=== PATIENT | female | born 1985 | race Caucasian/White ===

== ENCOUNTER 2018-01-11 01:17 | Emergency (ER) | payer OTHER, SELFPAY ==
[2018-01-11 01:45] LABS: #Basophils 0.1 thou/uL (0.0-0.2); #Eosinphils 0.1 thou/uL (0.0-0.7); #Lymphocytes 2.6 thou/uL (1.20-3.40); #Monocytes 0.4 thou/uL (0.11-0.59); #Neutrophils 2.9 thou/uL (1.40-6.50); %Basophils 0.8 % (0.0-1.0); %Eosinophils 2.3 % (0.0-10.0); %Lymphocytes 42.3 % (21.0-51.0); %Neutrophils 47.5 % (42.0-75.0); Hemoglobin 12.3 g/dL (12.0-16.0); Mean Corpuscular HGB CONC 33.2 g/dL (32.0-36.0); Mean Corpuscular Hemoglobin 27.9 pg (27.0-31.0); Mean Platelet Volume 7.5 fL (7.4-10.4); Platelet Count 232 thou/uL (130-400); RBC Distribution Width 12.5 % (11.5-14.5); Red Blood Cell (RBC) Count 4.42 mill/uL (4.20-5.40)
[2018-01-11 02:13] LABS: Alcohol 208 mg/dL (Less than 10); Anion Gap 18 mmol/L (10-20); BUN (Urea Nitrogen) 8 mg/dL (7.0-18.7); Calc. Creatinine Clearance 0 mL/min (70-130); Calcium 9.2 mg/dL (7.8-10.44); Carbon Dioxide 18 mmol/L (22-29); Chloride 106 mmol/L (98-107); Estimated GFR-MDRD Greater than 90; Glucose 357 mg/dL (70-105); Potassium 3.4 mmol/L (3.5-5.1); Sodium 139 mmol/L (136-145)
[2018-01-11 02:31] LABS: BHCG - Serum Negative (NEGATIVE); Pregs Control Background? CLEAR/WHITE (CLR/WHITE); Pregs Control Bar Appear? YES (CONTROL BAR)
[2018-01-11] MEDS ORDERED: Insulin Regular 300 UNITS/3 ML VIAL ONE (02:43)
== END 2018-01-11 04:47 | disposition home or self-care (01) ==
LOC: ERS 01:17
DX: F10.129 Alcohol abuse with intoxication, unspecified (principal); E11.65 Type 2 diabetes mellitus with hyperglycemia; Y90.7 Blood alcohol level of 200-239 mg/100 ml
CPT/HCPCS: 36415; 36416; 80048; 80307; 82010; 84703; 85025; 96361; 96374; J1815

== ENCOUNTER 2018-10-20 09:05 | Outpatient (CLI) | payer MEDICAID ==
--- NOTE | 2018-10-20 10:41 | ULT ---
HEPATIC ULTRASOUND WITH GRAYSCALE AND COLORFLOW AND SPECTRAL DOPPLER: HISTORY: Elevated LFTs. FINDINGS: The liver demonstrates homogeneous echotexture without focal mass or intrahepatic ductal dilatation. The spleen measures 12.8 cm in length without mass. No shadowing gallstones, gallbladder wall thick ening, or pericholecystic fluid is seen. There are nonmobile, nonshadowing, echogenic foci arising f rom the gallbladder, consistent with polyps, the largest measuring about 7 mm. The common duct measu res 3 mm in diameter. The pancreas is not well visualized due to overlying bowel gas. There is normal flow and waveforms in the hepatic, portal, and splenic vasculature. No free fluid is seen. IMPRESSION: 1. Gallbladder polyps, measuring up to 7 mm. Surgical consultation is recommended. 2. Borderline splenomegaly. POS: [facility]
== END 2018-10-20 09:06 | disposition home or self-care (01) ==
LOC: ULT 09:05
PROVIDERS: ATTEND Student in an Organized Health Care Education/Training Program
DX: R94.5 Abnormal results of liver function studies (principal); K82.4 Cholesterolosis of gallbladder
CPT/HCPCS: 76705

== ENCOUNTER 2019-01-23 18:45 | Inpatient (IN) | payer MEDICAID, SELFPAY ==
[2019-01-23] MEDS ORDERED: Acetaminophen 500 MG TAB PO PRN (19:47)
[2019-01-23] MEDS ORDERED: Diphenoxylate HCl/Atropine Tablet PO PRN ×2 (19:47)
[2019-01-23] MEDS ORDERED: NS / Oxytocin 40 units/1000ml 1,000 ML IV PRN ×2 (19:47→20:26)
[2019-01-23] MEDS ORDERED: Methylergonovine 0.2 MG/ML VIAL IM PRN (19:47)
[2019-01-23] MEDS ORDERED: hydrALAZINE 20 MG/ML VIAL SLOW IVP PRN (19:47)
[2019-01-23] MEDS ORDERED: Misoprostol 200 MCG TAB PR PRN (19:47)
[2019-01-23] MEDS ORDERED: Butorphanol Tartrate 1 MG/ML VIAL SLOW IVP PRN (19:47)
[2019-01-23] MEDS ORDERED: Lidocaine 1% (PF) 30 ML VIAL SC PRN (19:47)
[2019-01-23] MEDS ORDERED: Carboprost 250 MCG/ML AMP IM PRN (19:47)
[2019-01-23] MEDS ORDERED: Promethazine HCl 25 MG/ML VIAL IM PRN (19:47)
[2019-01-23] MEDS ORDERED: Ondansetron PF 4 MG/2 ML Vial IVP PRN (19:47)
[2019-01-23] MEDS ORDERED: Ibuprofen 800 MG TAB PO PRN (19:47)
--- NOTE | 2019-01-23 19:47 | PDOC.FPROB ---
FMR OB H&P: HPI - History of Present Illness Chief Complaint: IOL History of Present Illness: 33 yo @ 38.1 by 14.6 wk sono presents for medically indicated IOL for White Class F diabetes. Denies VB, VD, LOF, contractions. Feels movement. Desires epidural. Has no concerns. Primary Care Physician: Logan DAVIS FMR OB H&P: Current - Care : 6 Para: 5005 Dating Criteria: 14.6 wk sono Course/Complications: Class F diabetes, now with proteinuria - OB Labs Blood type: O RH: positive Antibody Screen: negative HIV: negative RPR: negative HepBsAg: negative Rubella: immune Quad screen: negative Gonorrhea: negative Chlamydia: negative A1c: 8.9 H&H: 12.4/36.2 Platelets: 217 Additional labs: 24 hr urine pr 288, pr/cr 271 AST/ALT: 56/91 TSH 0.786 Hep A negative Hep C negative - Anatomy Survey Anatomy survey: Normal growth and anatomy. 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/2017 - Surgical History Sx History: appendectomy age 14 - Social History Social History: No tobacco, alcohol, drug use - Family History Family History: Diabetes FMR OB H&P: Medications - Current Home Medications: Medication Instructions Recorded Confirmed Type Vit 33/Iron/Folic/Dha 1 each PO DAILY 01/21/14 01/23/19 History [Select-OB + DHA Pack] Aspirin [Ecotrin Low Strength] 81 mg pe PO DAILY 01/23/19 01/23/19 History Insulin NPH Hum/Reg Insulin HM 35 units SQ TID-WM 01/23/19 01/23/19 History [Novolin 70-30 100 Unit/ml Vial] Insulin NPH Human Isophane 45 units SQ QAM 01/23/19 01/23/19 History [HumuLIN N] Allergies/Adverse Reactions: Allergies Allergy/AdvReac Type Severity Reaction Status Date / Time No Known Allergies Allergy Verified 01/21/14 16:33 FMR OB H&P: ROS - Review of Systems Eyes: denies: vision changes Cardiovascular: denies: chest pain, palpitation, edema Respiratory: denies: cough, shortness of breath Gastrointestinal: denies: abdominal pain, nausea, vomiting Genitourinary (Female): denies: dysuria, vaginal discharge, vaginal pain, vaginal bleeding, contractions, vaginal pressure Musculoskeletal: denies: pain, swelling Neurologic: denies: weakness, headache Integumentary: denies: rash FMR OB H&P: Vital Signs - Maternal Vital signs: 132/68, 68, 98% on RA - Heart Tones Baseline: 130 Variability: moderate Acceleration: present Deceleration: absent Category: category 1 [place] contractions every: none FMR OB H&P: Physical Exam - Physical Exam General: NAD HEENT: normocephalic and atraumatic Heart: RRR, normal S1/S2, no edema General: CTAB, no respiratory distress Abdomen: soft, gravid Skin: good tugor - Pelvic Exam SVE: 2//h Shane score: 5 Presentation: cephalic confirmed by ultrasound FMR OB H&P: A/P - Problem List (1) Intrauterine Current Visit: Yes Status: Acute Code(s): Z34.90 - ENCNTR FOR SUPRVSN OF NORMAL , UNSP, UNSP TRIMESTER (2) Encounter for induction of labor Current Visit: Yes Status: Acute Code(s): Z34.90 - ENCNTR FOR SUPRVSN OF NORMAL , UNSP, UNSP TRIMESTER (3) Diabetes mellitus type 2 in obese Current Visit: No Status: Acute Code(s): E11.9 - TYPE 2 DIABETES MELLITUS WITHOUT COMPLICATIONS; E66.9 - OBESITY, UNSPECIFIED Discussion: Date/Time: 01/23/191946 IOL, medically indicated for Class F diabetes - Cat 1, no contractions - [place] 5, cephalic presentation, will start pitocin - desires epidural, consulted anesthesia Pregestational DM2 - White class F - q2h accuchecks - SSI with goal intrapartum BG 70-120 - BG was 66 on admission, given crackers - Home regimen: Humilin U-100 45 units qam, Novolog 35 units with meals Obesity - BMI 37 Hx of LGA infants Hx reatined placenta s/p D&C with 2016 Hx PPH s/p 2 units pRBCs with 2016 Dispo: admit to L&D for IOL This H&P was discussed with Dr. Morales who agrees with the above documentation and plan. Addendum - Attending - Attending Attestation Date/Time: 01/24/19 9019 I personally evaluated the patient and discussed the management with Dr. Baker on 01/23/2019 I agree with the History, Examination, Assessment and Plan documented above with any addition or exceptions noted below - 33 yo @38 1/7 weeks here for induction due to Class F DM. Denies any ctx, LOF, VB. (+)FM SVE 2/50%/-3 per resident Cat 1 FHTs. A/P: 1) IUP @ 38 1/7 weeks - cervix favorable- plan to start pitocin. 2) Class F DM- monitor BG
[2019-01-23 20:29] VITALS: BMI 41.7
[2019-01-23] MEDS: Lactated Ringer's 1,000 ML IV SCH (21:02)
[2019-01-23] MEDS ORDERED: Dextrose 5% in Water 1,000 ML IV PRN (21:15)
[2019-01-23] MEDS ORDERED: Dextrose 50% Abboject 50 ML SYRINGE SLOW IVP PRN (21:15)
[2019-01-23] MEDS ORDERED: HumaLOG 300 UNITS/3 ML VIAL SC PRN (21:15)
[2019-01-23 21:25] LABS: Hemoglobin 11.7 g/dL (12.0-16.0); Mean Corpuscular HGB CONC 33.7 g/dL (32.0-36.0); Mean Corpuscular Hemoglobin 30.5 pg (27.0-31.0); Mean Corpuscular Volume 90.4 fL (78.0-98.0); Mean Platelet Volume 7.8 fL (7.4-10.4); Platelet Count 202 thou/uL (130-400); Red Blood Cell (RBC) Count 3.85 mill/uL (4.20-5.40); White Blood Cell (WBC) Count 8.5 thou/uL (4.8-10.8)
[2019-01-23] MEDS: NS w/ Oxytocin 10 units 500 ML IV SCH (21:59)
[2019-01-23 22:03] LABS: Syphilis Antibody Nonreactive (Nonreactive); Syphilis Antibody Index 0.05 S/CO (<1.00 Non-Reactive)
[2019-01-23 22:28] LABS: HBSAg Index 0.27 S/CO (0-0.99); Hep B Surf Ag Non-Reactive S/CO (NonReactive)
--- NOTE | 2019-01-24 00:42 | PDOC.LDPN ---
Labor & Delivery Progress Note - Subjective Subjective: comfortable - Objective Vital signs reviewed and normal: yes General: NAD, resting Uterine fundus: non tender SVE: 09/20/-3 Dilation: 2 Effacement: 25% Station: -3 FHT: category 1, variability present, absent or minimal variables [place] contractions every: infrequent - Assessment (1) Encounter for induction of labor Code(s): Z34.90 - ENCNTR FOR SUPRVSN OF NORMAL , UNSP, UNSP TRIMESTER Current Visit: Yes Status: Acute (2) Anemia of Code(s): O99.019 - ANEMIA COMPLICATING , UNSPECIFIED TRIMESTER Current Visit: No Status: Acute (3) Diabetes mellitus type 2 in obese Code(s): E11.9 - TYPE 2 DIABETES MELLITUS WITHOUT COMPLICATIONS; E66.9 - OBESITY , UNSPECIFIED Current Visit: No Status: Acute Plan: continue plan of care -: 1. IOL at 38 weeks dt DM - patient has been started on pitocin, however cxns are infrequent. Continue pit and change positions. No change on SVE at this time - recheck in 4-6 hours 2. DM - continue accuchecks. - SSI PRN
--- NOTE | 2019-01-24 04:39 | PDOC.LDPN ---
Labor & Delivery Progress Note - Subjective Subjective: comfortable, no concerns - Objective Vital signs reviewed and normal: yes General: NAD, resting, breathing through contractions Uterine fundus: non tender SVE: 4/50/-3 Dilation: 4 Effacement: 50% Station: -3 FHT: category 1, variability present, absent or minimal variables [place] contractions every: 3-5 - Assessment (1) Encounter for induction of labor Code(s): Z34.90 - ENCNTR FOR SUPRVSN OF NORMAL , UNSP, UNSP TRIMESTER Current Visit: Yes Status: Acute (2) Intrauterine Code(s): Z34.90 - ENCNTR FOR SUPRVSN OF NORMAL , UNSP, UNSP TRIMESTER Current Visit: Yes Status: Acute (3) Diabetes mellitus type 2 in obese Code(s): E11.9 - TYPE 2 DIABETES MELLITUS WITHOUT COMPLICATIONS; E66.9 - OBESITY , UNSPECIFIED Current Visit: No Status: Acute Plan: continue plan of care -: 1. IOL- at 38.1 wks. Making change on pitocin. Continue current plan. Will consider AROM if contraction slow. Category 1 strip. No concerns at this time. Recheck in 4 hours. 2. White class F DM Continue to monitor blood sugar. All accuchecks controlled at this time.
--- NOTE | 2019-01-24 07:04 | PDOC.LDPN ---
Labor & Delivery Progress Note - Subjective Subjective: comfortable - Objective Vital signs reviewed and normal: yes General: resting SVE: 4/50%/-3/ant/soft FHT: category 1 [place] contractions every: q2-3 min - Assessment (1) Intrauterine Code(s): Z34.90 - ENCNTR FOR SUPRVSN OF NORMAL , UNSP, UNSP TRIMESTER Current Visit: Yes Status: Acute (2) Encounter for induction of labor Code(s): Z34.90 - ENCNTR FOR SUPRVSN OF NORMAL , UNSP, UNSP TRIMESTER Current Visit: Yes Status: Acute (3) Diabetes mellitus type 2 in obese Code(s): E11.9 - TYPE 2 DIABETES MELLITUS WITHOUT COMPLICATIONS; E66.9 - OBESITY , UNSPECIFIED Current Visit: No Status: Acute -: A/P: 1) IUP @38 2/7 weeks undergoing induction- continue pitocin and monitoring. Category 1 FHTs 2) Class F DM- BG 70-80 through night; continue to monitor.
[2019-01-24] MEDS: NS w/ Oxytocin 10 units 500 ML IV SCH (09:15)
[2019-01-24] MEDS ORDERED: HumaLOG 300 UNITS/3 ML VIAL SC PRN (11:41)
[2019-01-24] MEDS: Lactated Ringer's 1,000 ML IV SCH ×2 (12:08→15:08)
--- NOTE | 2019-01-24 13:33 | PDOC.LDPN ---
Labor & Delivery Progress Note - Subjective Subjective: comfortable - Objective Abnormal vital signs: BP's systolic in 140-150's General: NAD, resting Uterine fundus: non tender SVE: Alexis @ 9:45 AM Dilation: 4 Effacement: 50% Station: -3 (ballotable) FHT: category 1, variability present [place] contractions every: q3 min - Assessment (1) Encounter for induction of labor Code(s): Z34.90 - ENCNTR FOR SUPRVSN OF NORMAL , UNSP, UNSP TRIMESTER Current Visit: Yes Status: Acute (2) Intrauterine Code(s): Z34.90 - ENCNTR FOR SUPRVSN OF NORMAL , UNSP, UNSP TRIMESTER Current Visit: Yes Status: Acute (3) Anemia of Code(s): O99.019 - ANEMIA COMPLICATING , UNSPECIFIED TRIMESTER Current Visit: No Status: Acute Plan: continue plan of care -: 33 year old at 38.2 wks by 14.6 wk sono presents for medically indicated IOL 1. Medically indicated IOL for Class F DM - Cervical exam unchanged /-3, ballotable - CLAIRE 15.06 cm with DVP 6.30 cm - Cephalic presentation based on bedside sono - Not safe for rupture at this time, will recheck in 4 hours and consider AROM at that time - On 18U of pit, not ruptured, so no IUPC in place. Will give Pit break and restart - Q2h BG checks, all at goal (<120). SSI in place for BG >120. 2. Polyhydramnios - CLAIRE in clinic appx 25 with DVP 8 cm - CLAIRE today 15.06 cm with DVP 6.30 cm 3. Hx LGA 4. Anemia of - H/H 11.7/34.8 - Continue to monitor 5. Grandmultip - Possibility for PPH - Cytotec and hemabate if needed - No methergine d/t elevated BP's 6. gHTN - Pre-E labs pending (CMP, UA) - Proteinuria at baseline d/t kidney function - No severe range pressures - Continue to monitor pressures Addendum - Attending - Attending Attestation Date/Time: 01/24/19 8742 I personally evaluated the patient and discussed the management with Dr. Espinoza I agree with the History, Examination, Assessment and Plan documented above with any addition or exceptions noted below. 33 yo female at 38.2 wks by 14.6 wk sono here for IOL 2/2 uncontrolled class F DM now with gHTN. 1. sIUP: IOB records reviewed. GBS negative. Will need Tdap pp. Epidural for pain control. Cat 1 tracing. 2. Uncontrolled class F DM: Continue close glucose monitoring. Keep glucose < 110. Will switch accu checks to q1 hour in active labor. 3. Polyhydramnios 4. Transamnitis with gallbladder polyp: Will try to arrange surgical evaluation but limited by insurance issues. 5. BMI 41: 25 lb wt gain 6. hx of LGA fetus: EFW 8lbs 7. hx of retained placenta with PPH: Actively and aggressively manage 3rd stage 8. Grandmultip 9. gHTN: Labs unchanged. Asymptomatic. Monitor BP. Repeat exam in 2 to 4 hours. Consider AROM when safe vs slow leak if not able due to position. Continue pit per protocol. Jairo
[2019-01-24 13:50] LABS: ALT (SGPT) 44 U/L (8-55); AST (SGOT) 70 U/L (5-34); Albumin 3.1 g/dL (3.5-5.0); Alkaline Phosphatase 128 U/L (40-150); Anion Gap 13 mmol/L (10-20); BUN (Urea Nitrogen) 11 mg/dL (7.0-18.7); Bilirubin, Total 0.5 mg/dL (0.2-1.2); Calc. Creatinine Clearance 227 mL/min (70-130); Calcium 8.7 mg/dL (7.8-10.44); Carbon Dioxide 16 mmol/L (22-29); Chloride 109 mmol/L (98-107); Estimated GFR-MDRD Greater than 90; Globulin 2.8 g/dL (2.4-3.5); Glucose 90 mg/dL (70-105); Potassium 3.9 mmol/L (3.5-5.1); Protein, Total 5.9 g/dL (6.0-8.3); Sodium 134 mmol/L (136-145)
[2019-01-24] MEDS ORDERED: Fentanyl 4 mcg/Bup 0.1% Cadd 100 ML ONE (14:20)
--- NOTE | 2019-01-24 14:33 | PDOC.OBLPN ---
FMR OB Labor PN: Subj - Interval History Hospital Day: 1 Chief Complaint: none Indentification: 33 yo at 38.2 WGA by 14.6 wk US Interval History: Elevated BP w high systolic of 157, requested epidural FMR OB Labor PN: Obj - Maternal Vital signs: BP: [148/86] HR: [70] RR: [] Tmax: [] Pox: [96]% on [] Wt: [103.42kg] - Urine output I&O: reviewed - Procedures Procedures: AROM AROM: bloody fluid FMR OB Labor PN: Exam - Physical Exam General: NAD General: no respiratory distress Abdomen: soft, gravid - Pelvic Exam Deviation from normal: cystic lesion <1cm SVE: By Logan @ 2:05pm Presentation: cephalic Estimated Weight: 9 lbs FMR OB Labor PN: Data - Labs Lab results: Laboratory Results - last 24 hr 01/23/19 01/23/19 01/23/19 20:23 21:15 21:15 WBC RBC Hgb Hct MCV MCH MCHC RDW Plt Count MPV Sodium Potassium Chloride Carbon Dioxide Anion Gap BUN Creatinine Estimated GFR (MDRD) Glucose POC Glucose 66 L Uric Acid Calcium Total Bilirubin AST ALT Alkaline Phosphatase Serum Total Protein Albumin Globulin Albumin/Globulin Ratio Syphilis IgG/IgM Ab Nonreactive Hep Bs Antigen Non-Reactive Blood Type Antibody Screen 01/23/19 01/23/19 01/23/19 21:15 21:15 22:27 WBC 8.5 RBC 3.85 L Hgb 11.7 L Hct 34.8 L MCV 90.4 MCH 30.5 MCHC 33.7 RDW 12.0 Plt Count 202 MPV 7.8 Sodium Potassium Chloride Carbon Dioxide Anion Gap BUN Creatinine Estimated GFR (MDRD) Glucose POC Glucose 85 Uric Acid Calcium Total Bilirubin AST ALT Alkaline Phosphatase Serum Total Protein Albumin Globulin Albumin/Globulin Ratio Syphilis IgG/IgM Ab Hep Bs Antigen Blood Type O POSITIVE Antibody Screen NEGATIVE 01/24/19 01/24/19 01/24/19 00:00 00:44 02:40 WBC RBC Hgb Hct MCV MCH MCHC RDW Plt Count MPV Sodium 134 L Potassium 3.9 Chloride 109 H Carbon Dioxide 16 L Anion Gap 13 BUN 11 Creatinine 0.58 L Estimated GFR (MDRD) Greater than 90 Glucose 90 POC Glucose 77 74 Uric Acid 5.0 Calcium 8.7 Total Bilirubin 0.5 AST 70 H ALT 44 Alkaline Phosphatase 128 Serum Total Protein 5.9 L Albumin 3.1 L Globulin 2.8 Albumin/Globulin Ratio 1.1 L Syphilis IgG/IgM Ab Hep Bs Antigen Blood Type Antibody Screen FMR OB Labor PN: A/P - Problem List (1) Encounter for induction of labor Current Visit: Yes Status: Acute Code(s): Z34.90 - ENCNTR FOR SUPRVSN OF NORMAL , UNSP, UNSP TRIMESTER (2) Uncontrolled type 2 diabetes mellitus Current Visit: Yes Status: Chronic Code(s): E11.65 - TYPE 2 DIABETES MELLITUS WITH HYPERGLYCEMIA (3) Gallbladder polyp Current Visit: Yes Status: Chronic Code(s): K82.4 - CHOLESTEROLOSIS OF GALLBLADDER (4) Morbid obesity with BMI of 40.0-44.9, adult Current Visit: Yes Status: Chronic Code(s): E66.01 - MORBID (SEVERE) OBESITY DUE TO EXCESS CALORIES; Z68.41 - BODY MASS INDEX (BMI) 40.0-44.9, ADULT (5) Elevated AST (SGOT) Current Visit: Yes Status: Chronic Code(s): R74.0 - NONSPEC ELEV OF LEVELS OF TRANSAMNS & LACTIC ACID DEHYDRGNSE (6) Intrauterine Current Visit: Yes Status: Acute Code(s): Z34.90 - ENCNTR FOR SUPRVSN OF NORMAL , UNSP, UNSP TRIMESTER (7) Anemia of Current Visit: No Status: Acute Code(s): O99.019 - ANEMIA COMPLICATING , UNSPECIFIED TRIMESTER (8) Polyhydramnios affecting in third trimester Current Visit: Yes Status: Acute Code(s): O40.3XX0 - POLYHYDRAMNIOS, THIRD TRIMESTER, NOT APPLICABLE OR UNSP (9) History of hemorrhage, currently in third trimester Current Visit: Yes Status: Acute Code(s): O09.293 - SUPRVSN OF PREG W POOR REPRODCTV OR OBSTET HX, THIRD TRI Disposition: Medically indicated induction of labor for uncontrolled Class F DM -575/0 @ 2:05pm -AROM @ 2:05, bloody fluid -repeat cervical exam in 1-2 hours once epidural is placed, IUPC at that time if indicated -20 units Pitocin -blood glucose q2h accuchecks have been well controlled (<120); increase to qh once active labor Anemia of -H/H stable Elevated AST -noted in clinic visits -gallbladder u/s showed gallbladder polyp -since enzymes continue to be elevated, will consider consulting gen surg Gallbladder polyp -see plan as above Morbid obesity -will ensure patient has appropriate prophylaxis pp Term intrauterine -38.2 wks, see plan for #1 History of PPH 2/2 retained products of conception -will have precautions ready Grandmultip -additional risk factor for pph -aggressively managed third stage of labor Discussion: Date/Time: 01/24/19 8761 This H&P was discussed with [Logan] who agrees with the above documentation and plan. Signature: Amparo Wilson PGY1 Addendum - Attending - Attending Attestation Date/Time: 01/24/19 9771 I personally evaluated the patient and discussed the management with Dr. Espinoza and Steve I agree with the History, Examination, Assessment and Plan documented above with any addition or exceptions noted below. 33 yo female at 38.2 wks by 14.6 wk sono here for IOL 2/2 uncontrolled class F DM now with gHTN. 1. sIUP: IOB records reviewed. GBS negative. Will need Tdap pp. Epidural for pain control. Cat 1 tracing. AROM at 1400. 2. Uncontrolled class F DM: Continue close glucose monitoring. Keep glucose < 110. Will switch accu checks to q1 hour in active labor. 3. Polyhydramnios 4. Transamnitis with gallbladder polyp: Will try to arrange surgical evaluation but limited by insurance issues. 5. BMI 41: 25 lb wt gain 6. hx of LGA fetus: EFW 8lbs 7. hx of retained placenta with PPH: Actively and aggressively manage 3rd stage 8. Grandmultip 9. gHTN: Labs unchanged. Asymptomatic. Monitor BP. Repeat exam in 2 to 4 hours. Continue pit per protocol. Will place IUPC as needed. Jairo
[2019-01-24] MEDS ORDERED: Fentanyl 100 MCG/2 ML VIAL ONE (14:42)
[2019-01-24] MEDS ORDERED: Bupivacaine 0.5% 10 ML VIAL ONE (14:42)
[2019-01-24] MEDS ORDERED: Bupivacaine 0.25% 10 ML VIAL EPIDURAL ONE (15:10)
[2019-01-24] MEDS ORDERED: Fentanyl 100 MCG/2 ML VIAL I-THECAL ONE (15:10)
[2019-01-24] MEDS ORDERED: ePHEDrine/0.9% NaCl/PF SYRINGE 50 mg/10 ml SLOW IVP PRN (15:11)
[2019-01-24] MEDS ORDERED: Ondansetron PF 4 MG/2 ML Vial IVP PRN ×3 (15:11→22:33)
[2019-01-24] MEDS ORDERED: Acetaminophen 325 MG TAB PO PRN (15:11)
[2019-01-24] MEDS ORDERED: Naloxone HCl 0.4 mg/ml Vial IVP PRN ×2 (15:11)
[2019-01-24] MEDS ORDERED: Lactated Ringer's 500 ML IV PRN (15:11)
[2019-01-24] MEDS ORDERED: diphenhydrAMINE 50 MG/ML VIAL IVP PRN (15:11)
[2019-01-24] MEDS ORDERED: Promethazine HCl 25 MG/ML VIAL IM PRN (15:11)
[2019-01-24] MEDS ORDERED: Fentanyl 4 mcg/Bupivacaine 0.1% Cassette 100 ML EPIDURAL SCH (15:15)
[2019-01-24] MEDS ORDERED: Communication Order-Pharmacy FS SCH (15:15)
--- NOTE | 2019-01-24 17:11 | PDOC.LDPN ---
Labor & Delivery Progress Note - Subjective Subjective: comfortable - Objective Vital signs reviewed and normal: yes Abnormal vital signs: BP 134/76, Pulse 76 General: NAD, resting Uterine fundus: non tender SVE: 16:50 by Alexis Dilation: 7 Effacement: 75% Station: 0 FHT: category 1, variability present [place] contractions every: q4 min IUPC placed: yes - Assessment (1) Uncontrolled type 2 diabetes mellitus Code(s): E11.65 - TYPE 2 DIABETES MELLITUS WITH HYPERGLYCEMIA Current Visit: Yes Status: Chronic (2) Encounter for induction of labor Code(s): Z34.90 - ENCNTR FOR SUPRVSN OF NORMAL , UNSP, UNSP TRIMESTER Current Visit: Yes Status: Acute (3) Intrauterine Code(s): Z34.90 - ENCNTR FOR SUPRVSN OF NORMAL , UNSP, UNSP TRIMESTER Current Visit: Yes Status: Acute (4) Anemia of Code(s): O99.019 - ANEMIA COMPLICATING , UNSPECIFIED TRIMESTER Current Visit: No Status: Acute (5) History of hemorrhage, currently Code(s): O09.299 - SUPRVSN OF PREG W POOR REPRODCTV OR OBSTET HISTORY, UNSP TRI Current Visit: Yes Status: Acute (6) Polyhydramnios affecting in third trimester Code(s): O40.3XX0 - POLYHYDRAMNIOS, THIRD TRIMESTER, NOT APPLICABLE OR UNSP Current Visit: Yes Status: Acute (7) Elevated AST (SGOT) Code(s): R74.0 - NONSPEC ELEV OF LEVELS OF TRANSAMNS & LACTIC ACID DEHYDRGNSE Current Visit: Yes Status: Chronic (8) Gallbladder polyp Code(s): K82.4 - CHOLESTEROLOSIS OF GALLBLADDER Current Visit: Yes Status: Chronic (9) Morbid obesity with BMI of 40.0-44.9, adult Code(s): E66.01 - MORBID (SEVERE) OBESITY DUE TO EXCESS CALORIES; Z68.41 - BODY MASS INDEX (BMI) 40.0-44.9, ADULT Current Visit: Yes Status: Chronic Plan: continue plan of care, pitocin for augmentation -: 33 year old at 38.2 wks by 14.6 wk sono Medically indicated induction of labor for uncontrolled Class F DM -/ @ 16:50 - IUPC placed @ 16:50 -AROM @ 2:05, bloody fluid -Repeat cervical check in 1-2 hours -blood glucose q1h accuchecks since in active labor Anemia of -H/H stable Elevated AST -noted in clinic visits -gallbladder u/s showed gallbladder polyp -since enzymes continue to be elevated, will consider consulting gen surg Gallbladder polyp -see plan as above Morbid obesity -will ensure patient has appropriate prophylaxis pp Term intrauterine -38.2 wks, see plan for #1 History of PPH 2/2 retained products of conception -will have precautions ready Grandmultip -additional risk factor for pph -aggressively managed third stage of labor Addendum - Attending - Attending Attestation Date/Time: 01/24/19 1840 I personally evaluated the patient and discussed the management with Dr. Espinoza I agree with the History, Examination, Assessment and Plan documented above with any addition or exceptions noted below. 33 yo female at 38.2 wks by 14.6 wk sono here for IOL 2/2 uncontrolled class F DM now with gHTN. 1. sIUP: IOB records reviewed. GBS negative. Will need Tdap pp. Epidural for pain control. Cat 1 tracing. AROM at 1400. 2. Uncontrolled class F DM: Continue close glucose monitoring. Keep glucose < 110. Will switch accu checks to q1 hour in active labor. 3. Polyhydramnios 4. Transamnitis with gallbladder polyp: Will try to arrange surgical evaluation but limited by insurance issues. 5. BMI 41: 25 lb wt gain 6. hx of LGA fetus: EFW 8lbs 7. hx of retained placenta with PPH: Actively and aggressively manage 3rd stage 8. Grandmultip 9. gHTN: Labs unchanged. Asymptomatic. Monitor BP. Repeat exam in 2 hours/prn. Continue pit per protocol. Changing appropriately. Could considering holding off IUPC placement but has been done. Contractions adequate. Jairo
--- NOTE | 2019-01-24 19:14 | PDOC.LDPN ---
Labor & Delivery Progress Note - Subjective Subjective: comfortable, no concerns - Objective Vital signs reviewed and normal: yes General: NAD, resting, breathing through contractions Uterine fundus: non tender SVE: anterior lip Effacement: 100% Station: 1+ FHT: category 1, early decelerations, variability present, absent or minimal variables [place] contractions every: 3-4 min AROM: bloody fluid IUPC placed: yes - Assessment (1) Encounter for induction of labor Code(s): Z34.90 - ENCNTR FOR SUPRVSN OF NORMAL , UNSP, UNSP TRIMESTER Current Visit: Yes Status: Acute (2) Intrauterine Code(s): Z34.90 - ENCNTR FOR SUPRVSN OF NORMAL , UNSP, UNSP TRIMESTER Current Visit: Yes Status: Acute Plan: continue plan of care, pitocin for augmentation -: 1. IOP- 38.2 wks. On pitocin. AROM at 1400, with bloody fluid. 1900 check anterior lip and +1. Continue induction, will attempt to push past anterior lip and position change to upright seated position. 2. White class F DM. Accuchecks have been normal. SSI. 3. gestational HTN- monitor BP's 4. Past history of PPH with retained products. Plan AMTSL with Pit and 800 cytotec. Addendum - Attending - Attending Attestation Date/Time: 01/24/191941 I personally evaluated the patient and discussed the management with Dr. Kim I agree with the History, Examination, Assessment and Plan documented above with any addition or exceptions noted below. 33 yo female at 38.2 wks by 14.6 wk sono here for IOL 2/2 uncontrolled class F DM now with gHTN. 1. sIUP: IOB records reviewed. GBS negative. Will need Tdap pp. Epidural for pain control. Cat 1 tracing. AROM at 1400. 2. Uncontrolled class F DM: Continue close glucose monitoring. Keep glucose < 110. Will switch accu checks to q1 hour in active labor. 3. Polyhydramnios 4. Transamnitis with gallbladder polyp: Will try to arrange surgical evaluation but limited by insurance issues. 5. BMI 41: 25 lb wt gain 6. hx of LGA fetus: EFW 8lbs 7. hx of retained placenta with PPH: Actively and aggressively manage 3rd stage 8. Grandmultip 9. gHTN: Labs unchanged. Asymptomatic. Monitor BP. Anterior lip. Repeat in 1 hour/prn. Jairo
[2019-01-24] MEDS ORDERED: NS / Oxytocin 40 units/1000ml 1,000 ML IV SCH ×2 (20:30→22:33)
[2019-01-24] MEDS ORDERED: hydrALAZINE 20 MG/ML VIAL SLOW IVP PRN ×2 (20:30→22:33)
[2019-01-24] MEDS ORDERED: Lanolin Ointment 7 GM TUBE TOP PRN ×2 (20:30→22:33)
[2019-01-24] MEDS ORDERED: Milk Of Magnesia 30 ML UDCUP PO PRN ×2 (20:30→22:33)
[2019-01-24] MEDS ORDERED: Preparation H Ointment 28 GM TUBE PR PRN ×2 (20:30→22:33)
[2019-01-24] MEDS ORDERED: Benzocaine-Menthol 82.5 ML CAN TOP PRN ×2 (20:30→22:33)
[2019-01-24] MEDS ORDERED: Bisacodyl 10 MG SUPP PR PRN ×2 (20:30→22:33)
--- NOTE | 2019-01-24 20:38 | PDOC.OPDEL ---
OB Operative/Delivery Note Delivery Dr/Surgeon: Aakash Wells Pre-Delivery Diagnosis: medically indicated induction Procedure/Post Delivery Dx: spontaneous vaginal delivery Weeks gestation: 38 (38.2) Anesthesia: epidural - Findings A Sex: female Weight: 3.608 kg - 1 min: 8 - 5 min: 9 - Additional Findings/Plan Placenta delivered: spontaneous Repaired Obstetrical Laceration: none Compilations/Other Findings: Delivering Physician Sumaya Kim D.O., Aakash Zabala D.O. Attending Dr. Logan M.D. Procedure: Spontaneous Vaginal Delivery, Kaden Placement Anesthesia: epidural QBL: 528 ml EBL: 1000 ml CBL: 702 ml Pre-op Diagnosis: 1. Term dong intrauterine 2. DM2 White Class F , uncontrolled 3. Gestational HTN 4. BMI 42 5. Transaminitis with gallbladder polyp 6. Polyhydraminios 7. hx of LGA 8. hx of retained POC with PPH 9. Grandmultip Post-op Diagnosis: SAME. 10. Excessive Vaginal Bleeding 11. Lower uterine segment atony Indications: A 33 y/o female presents to L&D for induction due to uncontrolled DM, White Class F. Delivery Note: This is 33yo F @ 38.2wks by 14.6 wk sono who delivered a viable F at 19:54. Following an uneventful antepartum course, a vigorous female was delivered over an intact perineum in the occipitoanterior position. Anterior Shoulder and then remainder of the body delivered. No nuchal cord. The head was held down and mouth and nares were bulb suctioned. Cord clamped, after delayed cord clamping and cut, and cord blood collected. Active management of third stage of labor was started after delivery of infant, because the mother has a history of PPH. Placed on Pit, cytotec 800 inserted rectally. Placenta delivered intact in the Crum with a 3 vessel cord noted. Fundal massage was performed and the fundus was firm but lower segment noted to have atony. The cervix and vagina were inspected and found to be free of lacerations. The patient continued to have brisk bleeding. Lower Uterine segment atony continued. The patient was given hemabate and Lomotil. Bleeding slowed. Lower segment was slow to firm and therefor Bakri Balloon (300 ml) was placed. The brisk uterine bleeding then ceased. went to nursery in good condition for routine care. Apgars were 8/9 at 1 & 5 minutes, respectively. Patient tolerated delivery well and went to after routine recovery/care. Plan to give patient ancef for prophylaxis. Remove Kaden when able. I was present and participated in all steps above. 33 yo female at 38.2 wks by 14.6 wk sono here for IOL 2/2 uncontrolled class F DM now with gHTN. Patient induced with pitocin per protocol due to favorable cervix. Uneventful peripartum course. AROM with bloody tint fluid at 1400. Complete at around 1900. Female delivered at 1954. Lower segment atony occurred despite active and aggressive management of 3rd stage. Uterus found to be free of POC. Hemabate and ppx Kaden placed. Patient tolerated well. No complications. Will monitor on L&D 1 additional hour then if well will transfer to PP. Will give Ancef ppx due to uterine manipulation. Jairo Post delivery plan: routine recovery
[2019-01-24] MEDS ORDERED: Docusate Calcium (SURFAK) 240 MG CAP PO SCH (21:00)
[2019-01-24] MEDS ORDERED: Diphenoxylate HCl/Atropine Tablet PO SCH (21:30)
[2019-01-24] MEDS ORDERED: CEFAZOLIN 2 GM in Premix Bag 1 BAG IVPB SCH (21:30)
[2019-01-24] MEDS ORDERED: Ibuprofen 800 MG TAB PO SCH (22:00)
[2019-01-25] MEDS: Ibuprofen 800 MG TAB PO SCH ×4 (00:29→23:06)
[2019-01-25] MEDS ORDERED: Acetaminophen 650 MG/20.3 ML UDCUP PO PRN (02:45)
[2019-01-25] MEDS: HYDROcodone/Acetaminophen 7.5/325 mg Tablet PO PRN ×2 (02:52→21:20)
--- NOTE | 2019-01-25 06:05 | PDOC.PP ---
Post Progress Note Post Day #: 1 Subjective: Patient doing well this AM. No significant overnight events. Lochia minimal. Has yet to ambulate. Tolerating PO. PO intake tolerated: yes Flatus: yes Ambulation: yes Vital Signs (12 hours) Temp Pulse Resp BP Pulse Ox 01/25/19 04:23 98.1 F 79 18 133/60 01/25/19 00:25 98.3 F 75 18 138/61 01/24/19 23:00 98.7 F 92 18 140/74 98 Weight Weight 103.419 kg - Physical Examination General: NAD Cardiovascular: RRR Respiratory: clear to auscultation bilaterally, non-labored breathing Abdominal: + bowel sounds, lochia (scant/minimal) Deviation from normal: Abdomen TTP with minimal palpation Neurological: no gross focal deficits Psychiatric: A&Ox3, normal affect Result Diagrams: 01/25/19 06:24 01/25/19 06:24 Additional Labs: Post Labs Blood Type O POSITIVE 01/23/19 21:15 Hep Bs Antigen Non-Reactive S/CO (NonReactive) 01/23/19 21:15 (1) Uncontrolled type 2 diabetes mellitus Code(s): E11.65 - TYPE 2 DIABETES MELLITUS WITH HYPERGLYCEMIA Status: Chronic (2) Encounter for induction of labor Code(s): Z34.90 - ENCNTR FOR SUPRVSN OF NORMAL , UNSP, UNSP TRIMESTER Status: Acute (3) Intrauterine Code(s): Z34.90 - ENCNTR FOR SUPRVSN OF NORMAL , UNSP, UNSP TRIMESTER Status: Acute (4) Anemia of Code(s): O99.019 - ANEMIA COMPLICATING , UNSPECIFIED TRIMESTER Status : Acute (5) History of hemorrhage, currently Code(s): O09.299 - SUPRVSN OF PREG W POOR REPRODCTV OR OBSTET HISTORY, UNSP TRI Status: Acute (6) Polyhydramnios affecting in third trimester Code(s): O40.3XX0 - POLYHYDRAMNIOS, THIRD TRIMESTER, NOT APPLICABLE OR UNSP Status: Acute (7) Elevated AST (SGOT) Code(s): R74.0 - NONSPEC ELEV OF LEVELS OF TRANSAMNS & LACTIC ACID DEHYDRGNSE Status: Chronic (8) Gallbladder polyp Code(s): K82.4 - CHOLESTEROLOSIS OF GALLBLADDER Status: Chronic (9) Morbid obesity with BMI of 40.0-44.9, adult Code(s): E66.01 - MORBID (SEVERE) OBESITY DUE TO EXCESS CALORIES; Z68.41 - BODY MASS INDEX (BMI) 40.0-44.9, ADULT Status: Chronic - Assessment/Plan 33 year old at 38.2 wks by 14.6 wk sono Routine PP care - Post op day #1 s/p - No lacerations - Encourage ambulation - Tolerating PO - Lochia minimal - Lower uterine segment atony requiring cytotec, hemabate, and gavin balloon ( which was later removed due to poor placement). QBL on 550 mL. No significant bleeding after removal of gavin balloon. Diabetes Mellitus Type II, uncontrolled - BG well controlled during labor - Pending AM FBG - Will restart metformin today Anemia of -H/H stable on admission Elevated AST - Noted in clinic visits - Gallbladder u/s showed gallbladder polyp - Since enzymes continue to be elevated, will consider consulting gen surg - Pending AM CMP Gallbladder polyp -See plan as above Morbid obesity -Will ensure patient has appropriate prophylaxis pp (ambulation, SCD's) Term intrauterine , delivered History of PPH 2/2 retained products of conception Dispo: Plan for possible d/c home tomorrow. Addendum - Attending - Attending Attestation Date/Time: 01/25/19 1000 I personally evaluated the patient and discussed the management with Dr. Espinoza I agree with the History, Examination, Assessment and Plan documented above with any addition or exceptions noted below. 33 yo now female s/p at 38.2 wks on 01/24/19 after IOL 2/2 uncontrolled class F DM now with gHTN. PPD# 1 Patient doing well. Pain controlled. Ambulating without difficulty. Voiding well. 1. s/p : Routine pp care. Doing well. Pain controlled. Lochia moderate but improving per patient. 2. Uncontrolled class F DM: Restart metformin and adjust to home dose of 1000 mg BID. Follow up closely outpatient with PCP. 3. Transamnitis with gallbladder polyp: Will try to arrange surgical evaluation but limited by insurance issues. Patient to follow up outpatient. 4. BMI 41: 25 lb wt gain 5. Excessive VB after delivery with hx of retained placenta and PPH. Steps taken to prevent hemorrhage. H&H appropriate drop. 6. Grandmultip. Will get Depo until gets vasectomy. 7. gHTN: Borderline BP at 130s. Asymptomatic. Monitor closely. Dispo: Continue routine pp care. Jairo
[2019-01-25 06:34] LABS: #Eosinphils 0.1 thou/uL (0.0-0.7); #Monocytes 0.6 thou/uL (0.11-0.59); #Neutrophils 9.1 thou/uL (1.40-6.50); %Basophils 0.3 % (0.0-1.0); %Eosinophils 0.9 % (0.0-10.0); %Lymphocytes 16.8 % (21.0-51.0); %Neutrophils 77.1 % (42.0-75.0); Hemoglobin 10.8 g/dL (12.0-16.0); Mean Corpuscular HGB CONC 34.8 g/dL (32.0-36.0); Mean Corpuscular Hemoglobin 31.7 pg (27.0-31.0); Mean Platelet Volume 7.8 fL (7.4-10.4); Platelet Count 188 thou/uL (130-400); RBC Distribution Width 12.1 % (11.5-14.5); Red Blood Cell (RBC) Count 3.42 mill/uL (4.20-5.40); White Blood Cell (WBC) Count 11.9 thou/uL (4.8-10.8)
[2019-01-25 07:00] LABS: ALT (SGPT) 34 U/L (8-55); AST (SGOT) 59 U/L (5-34); Albumin 2.6 g/dL (3.5-5.0); Alkaline Phosphatase 100 U/L (40-150); Anion Gap 12 mmol/L (10-20); BUN (Urea Nitrogen) 8 mg/dL (7.0-18.7); Bilirubin, Total 0.6 mg/dL (0.2-1.2); Calc. Creatinine Clearance 209 mL/min (70-130); Calcium 8.4 mg/dL (7.8-10.44); Carbon Dioxide 17 mmol/L (22-29); Chloride 111 mmol/L (98-107); Estimated GFR-MDRD Greater than 90; Globulin 2.9 g/dL (2.4-3.5); Glucose 80 mg/dL (70-105); Protein, Total 5.5 g/dL (6.0-8.3); Sodium 136 mmol/L (136-145)
[2019-01-25] MEDS ORDERED: Ferrous Sulfate 325 MG TAB PO SCH (08:00)
[2019-01-25] MEDS: Prenatal Vitamin 1 TAB PO SCH (08:58)
[2019-01-25] MEDS: metFORMIN XR 500 MG TAB PO SCH (08:58)
[2019-01-25] MEDS: Ferrous Sulfate 325 MG TAB PO SCH ×2 (08:59→18:49)
[2019-01-25] MEDS ORDERED: Adacel (T-DAP) 0.5 ML SYRINGE IM ONE ×2 (09:00)
[2019-01-25] MEDS ORDERED: Prenatal Vitamin 1 TAB PO SCH (09:00)
[2019-01-25] MEDS: Docusate Calcium (SURFAK) 240 MG CAP PO SCH ×2 (13:46→21:22)
[2019-01-25] MEDS: Lactated Ringer's 1,000 ML IV SCH (15:10)
[2019-01-26] MEDS: Ibuprofen 800 MG TAB PO SCH (06:27)
--- NOTE | 2019-01-26 07:19 | PDOC.PP ---
Post Progress Note Post Day #: 2 Subjective: Patient doing well this AM. No significant overnight events. Lochia minimal. Tolerating PO. Ambulating without difficulty. PO intake tolerated: yes Flatus: yes Ambulation: yes Vital Signs (12 hours) Temp Pulse Resp BP Pulse Ox 01/26/19 04:17 97.3 F L 71 18 128/61 01/25/19 23:05 97.8 F 76 18 131/62 01/25/19 20:27 97.9 F 69 18 124/58 L 98 Weight Weight 103.419 kg - Physical Examination General: NAD Cardiovascular: no m/r/g, RRR Respiratory: clear to auscultation bilaterally, non-labored breathing Abdominal: + bowel sounds, lochia (minimal), no distention, appropriately TTP Fundus firm & at: below umbilicus Neurological: no gross focal deficits Psychiatric: A&Ox3, normal affect Result Diagrams: 01/25/19 06:24 01/25/19 06:24 Additional Labs: Post Labs Blood Type O POSITIVE 01/23/19 21:15 Hep Bs Antigen Non-Reactive S/CO (NonReactive) 01/23/19 21:15 (1) Uncontrolled type 2 diabetes mellitus Code(s): E11.65 - TYPE 2 DIABETES MELLITUS WITH HYPERGLYCEMIA Status: Chronic (2) Encounter for induction of labor Code(s): Z34.90 - ENCNTR FOR SUPRVSN OF NORMAL , UNSP, UNSP TRIMESTER Status: Acute (3) Intrauterine Code(s): Z34.90 - ENCNTR FOR SUPRVSN OF NORMAL , UNSP, UNSP TRIMESTER Status: Acute (4) Anemia of Code(s): O99.019 - ANEMIA COMPLICATING , UNSPECIFIED TRIMESTER Status : Acute (5) History of hemorrhage, currently Code(s): O09.299 - SUPRVSN OF PREG W POOR REPRODCTV OR OBSTET HISTORY, UNSP TRI Status: Acute (6) Polyhydramnios affecting in third trimester Code(s): O40.3XX0 - POLYHYDRAMNIOS, THIRD TRIMESTER, NOT APPLICABLE OR UNSP Status: Acute (7) Elevated AST (SGOT) Code(s): R74.0 - NONSPEC ELEV OF LEVELS OF TRANSAMNS & LACTIC ACID DEHYDRGNSE Status: Chronic (8) Gallbladder polyp Code(s): K82.4 - CHOLESTEROLOSIS OF GALLBLADDER Status: Chronic (9) Morbid obesity with BMI of 40.0-44.9, adult Code(s): E66.01 - MORBID (SEVERE) OBESITY DUE TO EXCESS CALORIES; Z68.41 - BODY MASS INDEX (BMI) 40.0-44.9, ADULT Status: Chronic - Assessment/Plan 33 year old @ 38.2 wks by 14.6 wk sono delivered TAGA F on 01/24 via Routine PP care - Post op day #2 s/p - No lacerations - Encourage ambulation - Tolerating PO - Lochia minimal - Lower uterine segment atony requiring cytotec, hemabate, and gavin balloon ( which was later removed due to poor placement). QBL on 550 mL. No significant bleeding after removal of gavin balloon. Diabetes Mellitus Type II, uncontrolled - BG well controlled during labor - FBG 80 - D/C home with metformin gHTN - BP well controlled PP - BP today 128/61 Anemia of -H/H stable on admission Elevated AST - Noted in clinic visits - Gallbladder u/s showed gallbladder polyp - CMP with AST 70 --> 59 - May need further workup outpatient Gallbladder polyp -See plan as above Morbid obesity -Will ensure patient has appropriate prophylaxis pp (ambulation, SCD's) Term intrauterine , delivered History of PPH 2/2 retained products of conception Dispo: Plan for d/c home today pending infant's bilirubin. Addendum - Attending - Attending Attestation Date/Time: 01/26/19 2097 I personally evaluated the patient and discussed the management with Dr. Espinoza I agree with the History, Examination, Assessment and Plan documented above with any addition or exceptions noted below. 33 yo now female s/p at 38.2 wks on 01/24/19 after IOL 2/2 uncontrolled class F DM now with gHTN. PPD#2 Doing well. No complications. Pain controlled with PO meds. Request d/c today to take care of other children at home so can go back to work. Has support and home help if needed. 1. s/p : Routine pp care. Doing well. Pain controlled. Lochia minimal. Wants Depo then vasectomy for . 2. Uncontrolled class F DM: Follow up routinely with PCP. Increase metformin to 1000 mg BID. 3. Polyhydramnios 4. Transamnitis with gallbladder polyp: Needs gen surg referral. Follow up labs at pp visit. 5. BMI 41: 25 lb wt gain 6. Excessive vaginal bleeding at delivery. Measures taken to prevent PPH. Patient with hx of PPH due to retain POC. 7. Grandmultip 8. gHTN: BP stable. Needs follow up in 1 wk for BP check. Asymptomatic. Ok to d/c to home. Follow up in 1 wk. Jairo
[2019-01-26 08:33] VITALS: BP 149/66; TEMP 97.8
[2019-01-26] MEDS: metFORMIN XR 500 MG TAB PO SCH (09:07)
[2019-01-26] MEDS: Prenatal Vitamin 1 TAB PO SCH (09:07)
[2019-01-26] MEDS: Ferrous Sulfate 325 MG TAB PO SCH (09:24)
[2019-01-26] MEDS ORDERED: HYDROcodone/Acetaminophen 5/325 mg Tablet PO PRN (09:36)
[2019-01-26] MEDS: Docusate Calcium (SURFAK) 240 MG CAP PO SCH (10:31)
== END 2019-01-26 13:45 | disposition home or self-care (01) | DRG 768 ==
LOC: L&D 18:55 → 3SW 01-24 23:07
PROVIDERS: ADMIT Student in an Organized Health Care Education/Training Program; ATTEND Student in an Organized Health Care Education/Training Program
PROC: 10E0XZZ Delivery of Products of Conception, External Approach (ICD-10-PCS; principal; 2019-01-24)
PROC: 0W3R7ZZ Control Bleeding in Genitourinary Tract, Via Natural or Artificial Opening (ICD-10-PCS; 2019-01-24)
PROC: 10907ZC Drainage of Amniotic Fluid, Therapeutic from Products of Conception, Via Natural or Artificial Opening (ICD-10-PCS; 2019-01-24)
PROC: 3E033VJ Introduction of Other Hormone into Peripheral Vein, Percutaneous Approach (ICD-10-PCS; 2019-01-24)
DX: O24.12 Pre-existing type 2 diabetes mellitus, in childbirth (principal); Z37.0 Single live birth; O72.1 Other immediate postpartum hemorrhage; Z3A.38 38 weeks gestation of pregnancy; E11.9 Type 2 diabetes mellitus without complications; O99.02 Anemia complicating childbirth; D64.9 Anemia, unspecified; O13.4 Gestational [pregnancy-induced] hypertension without significant proteinuria, complicating childbirth; E66.01 Morbid (severe) obesity due to excess calories; O40.3XX0 Polyhydramnios, third trimester, not applicable or unspecified; O99.214 Obesity complicating childbirth; O99.62 Diseases of the digestive system complicating childbirth; K82.4 Cholesterolosis of gallbladder
CPT/HCPCS: 36415; 36416; 51702; 76815; 80053; 84550; 85025; 85027; 86780; 86850; 86900; 86901; 87340; J0690; J2590; J3010; J3490; S0020